=== PATIENT | male | born 1960 | race African-American/Black ===

== ENCOUNTER 2020-04-30 11:38 | Emergency (ER) | payer OTHER ==
[2020-04-30 11:52] VITALS: TEMP 98.8; BMI 29.8
[2020-04-30] MEDS ORDERED: ACETAMINOPHEN 1000 MG/100 ML VIAL (NON FORMULARY) IVPB ONE (12:40)
[2020-04-30] MEDS ORDERED: ACETAMINOPHEN INJECTION 100 ML IVPB ONE (12:52)
[2020-04-30 13:37] LABS: BASO % 0.2 % (0-2.0); EOS % 0.5 % (0-4.5); HEMATOCRIT 46.6 % (35.4-49); HEMOGLOBIN 15.1 GM/dL (11.7-16.9); LYMPH % 21.3 % (8-40); MCH 29.7 pg (25.7-33.7); MCHC 32.4 g/dl (32.0-35.9); MEAN CELL VOLUME 91.7 fl (80-96); MEAN PLT VOLUME 8.4 fl (7.5-11.1); MONO % 13.3 % (3.8-10.2); NEUT % 64.7 % (42.8-82.8); PLATELET COUNT 207 K/MM3 (134-434); RBC 5.08 M/mm3 (4.00-5.60); WHITE BLOOD COUNT 6.4 K/mm3 (4.0-10.0)
[2020-04-30 13:44] LABS: INR 1.01 (0.83-1.09); PROTHROMBIN TIME (PATIENT) 12.4 SEC (9.7-13.0)
[2020-04-30 13:47] LABS: ACTIVATED PTT 31.2 SECONDS (25.2-36.5)
[2020-04-30 13:52] LABS: CHLORIDE 100 mmol/L (98-107); SODIUM 136 mmol/L (136-145)
[2020-04-30 13:54] LABS: ALBUMIN 3.4 g/dl (3.4-5.0); ANION GAP 8 MMOL/L (8-16); CALCIUM 8.9 mg/dL (8.5-10.1); CO2 28 mmol/L (21-32); GLUCOSE,RANDOM 150 mg/dL (74-106)
[2020-04-30 13:55] LABS: BLOOD UREA NITROGEN 5.7 mg/dL (7-18)
[2020-04-30 13:57] LABS: CREATININE 0.8 mg/dL (0.55-1.3); SGPT/ALT 28 U/L (13-61)
[2020-04-30 13:58] LABS: SGOT/AST 22 U/L (15-37)
[2020-04-30 13:59] LABS: ALK PHOS 72 U/L (45-117); TOT PROT 7.6 g/dl (6.4-8.2)
[2020-04-30 14:00] LABS: LDH 325 U/L (87-246)
[2020-04-30 14:01] LABS: BILIRUBIN,TOTAL 0.4 mg/dL (0.2-1)
[2020-04-30] MEDS ORDERED: LORazepam 2 MG/ML SDV VIAL ONE ×2 (14:31→15:17)
[2020-04-30 15:05] VITALS: PULSE 89
[2020-04-30 15:06] LABS: ERYTHROCYTE SEDIMENTATION RATE 35 mm/hr (0-20)
[2020-04-30 18:02] VITALS: BP 142/74
== END 2020-04-30 17:59 | disposition left against medical advice (07) ==
LOC: JER 11:38
PROC: 3E0333Z Introduction of Anti-inflammatory into Peripheral Vein, Percutaneous Approach (ICD-10-PCS; principal; 2020-04-30)
PROC: 3E033NZ Introduction of Analgesics, Hypnotics, Sedatives into Peripheral Vein, Percutaneous Approach (ICD-10-PCS; 2020-04-30)
PROC: 3E033NZ Introduction of Analgesics, Hypnotics, Sedatives into Peripheral Vein, Percutaneous Approach (ICD-10-PCS; 2020-04-30)
DX: U07.1 COVID-19 (principal)
CPT/HCPCS: 36415; 71275-TC; 80053; 82550; 82553; 82728; 83605; 83615; 84484; 85025; 85379; 85610; 85651; 85730; 86140; 87040; 93005; 93010; 99285-25; C9803; J0131; Q9967; U0003